=== PATIENT | female | born 1950 | race Caucasian/White ===

== ENCOUNTER → 2022-01-12 | Outpatient (CLI) | payer MEDICARE, OTHER | LOC: CT 07:10 | PROVIDERS: ATTEND Emergency Medicine | DX: R06.00 Dyspnea, unspecified (principal); Z86.16 Personal history of COVID-19 | CPT/HCPCS: 71250 ==

== ENCOUNTER → 2022-02-06 | Outpatient (CLI) | payer MEDICARE, OTHER | LOC: MRI 09:20 | PROVIDERS: ATTEND Emergency Medicine | DX: M54.16 Radiculopathy, lumbar region (principal) | CPT/HCPCS: 72148 ==

== ENCOUNTER → 2022-06-26 | Outpatient (CLI) | payer MEDICARE, OTHER | LOC: RAD 08:19 | PROVIDERS: ATTEND Emergency Medicine | DX: R60.0 Localized edema (principal) | CPT/HCPCS: 93971 ==